=== PATIENT | female | born 1950 | race Caucasian/White ===

== ENCOUNTER 2025-04-09 07:03 | Outpatient (RCR) | payer MEDICARE, BC, SELFPAY | END 2025-04-09 23:59 | disposition home or self-care (01) | LOC: RPT 07:03 | PROVIDERS: ATTENDING PHYSICIAN Internal Medicine Hematology & Oncology; FAMILY PHYSICIAN Internal Medicine | DX: I97.2 Postmastectomy lymphedema syndrome (principal); C50.411 Malignant neoplasm of upper-outer quadrant of right female breast; R53.0 Neoplastic (malignant) related fatigue | CPT/HCPCS: 97110; 97140; 97162; 97530 ==

== ENCOUNTER 2025-05-12 10:23 | Outpatient (RCR) | payer MEDICARE, BC, SELFPAY | END 2025-05-12 23:59 | disposition home or self-care (01) | LOC: RPT 10:23 | PROVIDERS: ATTENDING PHYSICIAN Internal Medicine Hematology & Oncology; FAMILY PHYSICIAN Internal Medicine | DX: I97.2 Postmastectomy lymphedema syndrome (principal); C50.411 Malignant neoplasm of upper-outer quadrant of right female breast; R53.0 Neoplastic (malignant) related fatigue; Z73.6 Limitation of activities due to disability | CPT/HCPCS: 97110; 97112; 97140 ==